=== PATIENT | male | born 1990 ===

== ENCOUNTER 2019-10-10 23:15 | Emergency (ER) | payer SELFPAY ==
[2019-10-10] MEDS ORDERED: SODIUM CHLORIDE IRRI 500 ML 500 ML IR ONE (23:39)
[2019-10-11] MEDS ORDERED: TETANUS,DIPH,PERTUSS(ACELL) VACCINE 0.5 ML SYRINGE IM ONE (00:16)
[2019-10-11] MEDS ORDERED: MORPHINE 4 MG/1 ML INJ IV ONE (00:16)
[2019-10-11] MEDS ORDERED: SODIUM CHLORIDE 0.9% IRR 500 ML BOTTLE IR ONE (01:00)
[2019-10-11] MEDS: ceFAZolin/Water 2 GM/20 ML 2 GM/20 ML SYRINGE IV ONE ×2 (01:15→01:27)
[2019-10-11] MEDS ORDERED: ceFAZolin/NS 1 GM/50 ML 1 GM/50 ML BAG IV ONE (01:20)
--- NOTE | 2019-10-11 01:23 | XRay Report ---
RIGHT HAND 3 VIEWS INDICATION / CLINICAL INFORMATION: lacerations and finger tip avulsions/ pain COMPARISON: None available. FINDINGS: BONES / JOINT(S): There are comminuted fractures of the distal gregory of the distal phalanges of the t hird and fourth fingers. No significant arthritis. SOFT TISSUES: No significant abnormality. ADDITIONAL FINDINGS: None. Signer Name: Josef Gomez MD Signed: 10/11/2019 1:19 AM Workstation Name: [id number]
[2019-10-11] MEDS ORDERED: LIDOCAINE 1%/EPINEPHRINE 1:100,000 VIAL (20 ML) INFILTRATI ONE (02:55)
[2019-10-11] MEDS ORDERED: LIDOCAINE 2%/EPINEPHRINE 1:100,000 VIAL (20 ML) INFILTRATI ONE (03:03)
--- NOTE | 2019-10-11 04:04 | Emergency Department Report ---
Upper Extremity - HPI Chief Complaint: Wound/Laceration Stated Complaint: FINGER LAC Time Seen by Provider: 10/11/19 00:15 Upper Extremity: Right Middle Finger, Right Ring Finger Occurred When: 2 Days Severity: mild Symptoms: Yes Pain with Movement, Yes Laceration or Abrasion, No Limited Range of Movement, No Numbness, No Weakness, No Swelling ED Review of Systems ROS: Stated complaint: FINGER LAC Other details as noted in HPI Comment: All other systems reviewed and negative ED Past Medical Hx - Past Medical History Previous Medical History?: No - Surgical History Past Surgical History?: No - Social History Smoking Status: Current Every Day Smoker Substance Use Type: None - Medications Home Medications: Home Medications Medication Instructions Recorded Confirmed Last Taken Type Acetaminophen/Codeine [Tylenol 1 tab PO Q6H PRN #14 tab 10/11/19 Unknown Rx /Codeine # 3 tab] cephALEXin [Keflex] 500 mg PO Q8HR #30 cap 10/11/19 Unknown Rx Upper Extremity Exam - Exam General: Vital signs noted. No distress. Alert and acting appropriately. Head and Torso: No HEENT Abnormality, No Neck Tenderness, No Chest/Lungs Abnormality, No Abdominal Tenderness, No Back Tenderness Shoulder Exam: Yes Normal Range of Motion in Shoulder, No Shoulder Tenderness, No Clavicle Tenderness, No Shoulder Deformity, No AC Joint Tenderness Arm Exam: No Arm/Humerus Tenderness, No Arm Deformity Elbow: No Elbow Tenderness, No Normal Range of Motion in Elbow, No Elbow Deformity Forearm: No Forearm Tenderness, No Forearm Deformity, No Pain with Pronation, No Pain with Supination Wrist: Yes Normal ROM in Wrist, No Wrist Tenderness, No Wrist Deformity, No Snuffbox Tenderness, No Pain with Axial Thumb Compression Hand: Yes Normal ROM in Digit(s), No Hand Tenderness, No Hand Deformity, No Digit Tenderness, No Digit(s) Deformity, No Tendon Dysfunction CMS Exam: No Broken Skin, No Normal Distal Pulses, No Normal Capillary Refill, No Normal Distal Sensation Hand L/R Back: 1 - aVULSION LACERATION WTIH PARTIAL BONE EXPOSURE TO 3 DIGIT AND TEAR AVULSION INJURY TO 4TH DIGIT ED Course Vital Signs 10/10/19 10/11/19 23:27 01:03 Temperature 98.7 F Pulse Rate 107 H Respiratory 18 16 Rate Blood Pressure 146/90 O2 Sat by Pulse 96 Oximetry Critical care attestation.: If time is entered above; I have spent that time in minutes in the direct care of this critically ill patient, excluding procedure time. ED Disposition Clinical Impression: Open fracture of finger, distal phalanx Disposition: TO HOME OR SELFCARE Is pt being admited?: No Does the pt Need Aspirin: No Condition: Stable Instructions: Finger Fracture (ED), Laceration (ED) Prescriptions: cephALEXin [Keflex] 500 mg PO Q8HR #30 cap Acetaminophen/Codeine [Tylenol /Codeine # 3 tab] 1 tab PO Q6H PRN #14 tab PRN Reason: PAIN Referrals: MICHAEL MASON MD [Staff Physician] - 3-5 Days LEONEL ARRIAGA MD [Referring] - 3-5 Days EDEL TOMAS MD [Staff Physician] - 3-5 Days NAVI TAO MD [Referring] - 3-5 Days
[2019-10-11 04:09] VITALS: BP 132/78
== END 2019-10-11 04:18 | disposition home or self-care (01) ==
LOC: ED 23:15
DX: S62.634B Displaced fracture of distal phalanx of right ring finger, initial encounter for open fracture (principal); S62.632B Displaced fracture of distal phalanx of right middle finger, initial encounter for open fracture; F17.200 Nicotine dependence, unspecified, uncomplicated; Z79.899 Other long term (current) drug therapy; W22.8XXA Striking against or struck by other objects, initial encounter; Y93.89 Activity, other specified; Y92.89 Other specified places as the place of occurrence of the external cause; Y99.8 Other external cause status
CPT/HCPCS: 73130; 90471; 90715; 96374; 99283; J0690; J2270